=== PATIENT | male | born 2000 | race Caucasian/White ===

== ENCOUNTER 2023-08-24 16:22 | Emergency (ER) | payer OTHER ==
[2023-08-24 16:44] VITALS: BP 128/78; PULSE 87; RESP 18; TEMP 98.2; BMI 20.9
[2023-08-24] MEDS ORDERED: DIPHTH,PERTUSS(ACELL),TET 0.5 ML DISP.SYRIN IM ONE ×2 (18:10→18:27)
== END 2023-08-24 18:33 | disposition home or self-care (01) ==
LOC: JERFT 16:22 → JER 16:22 → JERFT 18:33
PROC: 0HQ0XZZ Repair Scalp Skin, External Approach (ICD-10-PCS; principal; 2023-08-24)
PROC: 3E0234Z Introduction of Serum, Toxoid and Vaccine into Muscle, Percutaneous Approach (ICD-10-PCS; 2023-08-24)
DX: S01.01XA Laceration without foreign body of scalp, initial encounter (principal); R51.9 Headache, unspecified; R22.0 Localized swelling, mass and lump, head; W22.8XXA Striking against or struck by other objects, initial encounter
CPT/HCPCS: 90715; 99282-25

== ENCOUNTER 2023-09-05 17:12 | Emergency (ER) | payer OTHER ==
[2023-09-05 18:17] VITALS: BP 120/77; PULSE 92; RESP 18; TEMP 98.2; BMI 20.2
== END 2023-09-05 18:47 | disposition home or self-care (01) ==
LOC: JERFT 17:12
DX: Z48.02 Encounter for removal of sutures (principal)
CPT/HCPCS: 99282-25

== ENCOUNTER 2024-01-25 12:06 | Emergency (ER) | payer OTHER ==
[2024-01-25 12:45] VITALS: BP 96/75; PULSE 81; RESP 18; TEMP 99.1; BMI 20.2
[2024-01-25] MEDS ORDERED: predniSONE 20 MG TABLET (UD) ONE (12:55)
[2024-01-25] MEDS: predniSONE 20 MG TABLET (UD) PO ONE (13:03)
== END 2024-01-25 13:11 | disposition home or self-care (01) ==
LOC: JERFT 12:06
PROC: 3E023GC Introduction of Other Therapeutic Substance into Muscle, Percutaneous Approach (ICD-10-PCS; principal; 2024-01-25)
DX: T78.40XA Allergy, unspecified, initial encounter (principal); L50.0 Allergic urticaria; L29.9 Pruritus, unspecified
CPT/HCPCS: 99284-25